=== PATIENT | male | born 1965 | race Caucasian/White ===

== ENCOUNTER 2018-05-25 08:50 | Outpatient (CLI) | payer BC, SELFPAY ==
[2018-05-25 12:58] LABS: TSH 0.84 uIU/mL (0.358-3.74)
== END 2018-05-25 09:10 ==
PROVIDERS: PCP Family Medicine; Visit Provider Preventive Medicine Undersea and Hyperbaric Medicine
DX: C01 Malignant neoplasm of base of tongue (principal)
CPT/HCPCS: 36415; 84443

== ENCOUNTER 2019-04-02 03:51 | Outpatient (CLI) | payer BC, SELFPAY ==
[2019-04-02 10:51] LABS: Abs Immature Grans 0.01 k/cumm (0.0-0.09); Absolute Basophil Count 0.01 k/cumm (0.0-0.2); Absolute Eosinophil Count 0.03 k/cumm (0.0-0.7); Absolute Lymphocyte Count 0.76 k/cumm (1.2-3.4); Absolute Monocyte Count 0.31 k/cumm (0.11-0.7); Absolute Neutrophil Count 2.51 k/cumm (1.2-6.7); Basophils % 0.3; Eosinophils % 0.8; HGB 14.6 g/dL (13.5-17.5); Immature Grans % 0.3; Lymphocytes % 20.9; Mean Corp. HGB Concentration 33.2 g/dL (32.0-36.0); Mean Corpuscular Hemoglobin 31.5 pg (27.0-33.0); Mean Platelet Volume 10.4 fL (8.0-11.0); Monocytes % 8.5; Neutrophils % 69.2; Platelet Count 241 x1000/uL (130-400); RBC 4.63 m/cumm (4.50-6.00); RBC Distribution Width 12.3 % (11.8-14.1); White Blood Cell Count 3.63 k/cumm (4.4-10.8)
[2019-04-02 11:26] LABS: ALT 37 U/L (16-63); AST 24 U/L (15-37); Alkaline Phosphatase 69 U/L (46-116); Anion Gap 9.9 mmol/L (3-11); BUN 14 mg/dL (7-18); Bilirubin, Total 0.4 mg/dL (0.2-1.0); CO2 26.1 mmol/L (21.0-32.0); CREATININE 0.77 mg/dL (0.70-1.30); Calcium 9.2 mg/dL (8.5-10.1); Calculated LDL 114 mg/dL; Chloride 103 mmol/L (98-107); Cholesterol 173 mg/dL (50-200); Glucose 86 mg/dL (70-100); HDL Cholesterol 41 mg/dL (40-60); Potassium 4.6 mmol/L (3.5-5.1); Sodium 139 mmol/L (136-145); TSH (W/Ref FT4) 2.43 uIU/mL (0.36-3.74); Total Protein 7.5 g/dL (6.4-8.2); Triglyceride 92 mg/dL (30-150)
[2019-04-02 11:27] LABS: Hemoglobin A1C 5.7 % (4.5-6.2)
[2019-04-05 11:47] LABS: PSA, Screening 2.1 ng/ml (0-3.5)
== END 2019-04-02 04:11 ==
PROVIDERS: PCP Family Medicine; Visit Provider Family Medicine
DX: Z00.00 Encounter for general adult medical examination without abnormal findings (principal); Z83.3 Family history of diabetes mellitus; Z92.3 Personal history of irradiation; Z83.438 Family history of other disorder of lipoprotein metabolism and other lipidemia; Z80.42 Family history of malignant neoplasm of prostate; Z12.5 Encounter for screening for malignant neoplasm of prostate
CPT/HCPCS: 36415; 80053; 80061; 84153; 83036; 84443; 85025

== ENCOUNTER 2019-06-16 06:22 | Day surgery (SDC) | payer BC, SELFPAY ==
[2019-06-16] VITALS (8 sets, daily range): BP systolic 131–159; BP diastolic 69–105; PULSE 56–77; RESP 14–20; TEMP 36.1–36.5; O2SAT 97–99
--- NOTE | 2019-06-16 06:10 | W.PM.HP.N ---
Date of service: 06/16/19 Time of Service: 06:29 Assessment and Plan Assessment and plan (1) Left inguinal hernia: Status: Acute Assessment and plan: A\\ left inguinal hernia P\\ Left Inguinal hernia repair with mesh Discussed TAP block Discussed pain management with Tylenol and ibuprofen afterwards Discussed lifting limitations for 4 weeks after surgery Risks, benefits and complications have been reviewed. Complications include but are not limited to bleeding, infection, injury to vas, vessels and nerves, injury to bowel and adverse reaction to medications. Questions were entertained and answered to their satisfaction and they wished to proceed. History of Present Illness Narrative: Mr. Holliday is a pleasant 53 year old male with a history of primary Tongue cancer s/p excision, Neck lymphadenectomy and radiation who is here today to discuss repair of his left inguinal hernia. He has had the hernia for about 1.5 years and he is an active ede. He has recovered from his tongue cancer and gained some weight and is ready to discuss repair. He has a previous history of Right inguinal hernia repair with mesh in 2010. he denies any chest pain or Cardiac history. There have been no changes in his health since he was seen in the office in March Review of Systems Constitutional Constitutional: Denies fever(s) and Denies weight loss Eyes Eyes: Denies change in vision ENT Ears, Nose, Mouth, and Throat: Denies dysphagia Cardiovascular Cardiovascular: Denies chest pain, Denies irregular heart rhythm, Denies palpitations, Denies dyspnea and Denies dyspnea on exertion Respiratory Respiratory: Denies chest congestion, Denies cough, Denies dyspnea and Denies dyspnea on exertion Gastrointestinal Gastrointestinal: Reports system reviewed and no additional complaints, except as docu and Denies dysphagia Genitourinary Genitourinary: Denies hematuria and Denies dysuria Endocrine Endocrine: Denies palpitations [facility] Medical History Decreased sensation (Acute) 06/11/19: To parts of neck s/p radiation per pt. -BR History of cancer (Acute) Hx of cancer to throat and lymph nodes. History of radiation to head and neck region (Acute) Left inguinal hernia (Acute) Swallowing difficulty (Acute) 06/11/19: Per pt. -BR Surgical History PNEUMOTHORAX (~08/1981) Repair of inguinal hernia (~05/2012) Family History Mother Diabetes Essential hypertension Heart disease Hyperlipidemia Father , 61 Heart disease Myocardial infarction Brother Essential hypertension Hyperlipidemia Paternal Grandfather Stroke Paternal Grandmother No problems noted. Maternal Grandfather Heart disease Son No problems noted. Daughter No problems noted. Daughter No problems noted. Social History Smoking/Tobacco Use Status: Former Tobacco Use Alcohol Intake: current Alcohol Intake frequency: a few times a week Alcohol type: beer, wine and hard liquor Drug use: Never Substance use type: does not use Caregiver/Support person: No Household members: spouse Housing: house Communication Needs: None Pets and animals: Yes Pets and animals: cat(s) and dog(s) Sexually active: Yes Do you think of yourself as: straight/heterosexual Current gender identity: male What is your relationship status?: How often do you talk on the phone with friends or family?: three or more times per week How often do you get together with friends or relatives?: once per week How often do you attend judaism or hindu services?: 1-3 times per year Do you belong to any clubs or organized social groups?: yes Panel score (0-1 are the most socially isolated patients): 3 What type of physical activity do you participate in: decline to answer Duration: decline to answer Frequency: decline to answer Ashley/Lutheran: Pentecostalism Special ashley needs: No Seatbelt use: always Helmet use: Yes Helmet use: always Drive intox or ride w/intox cdl company driver: No Do you feel safe at home: Yes Do you feel safe in your relationship?: Yes Meds Home Medications and Allergies Home Medications Medication Instructions Recorded Confirmed Type ciclopirox 100 gm TOPICAL BID #1 gel 05/23/17 04/09/19 Rx Allergies Allergy/AdvReac Type Severity Reaction Status Date / Time No Known Allergies Allergy Unverified 06/11/19 12:47 Exam Const General: cooperative, comfortable and no acute distress Orientation: alert and oriented x3 HENMT Head: normocephalic and atraumatic Resp Effort & Inspection: normal respiratory effort Auscultation: clear to auscultation bilaterally Cardio Rate: regular rate Rhythm: regular rhythm Heart Sounds: no gallops, no murmurs and no rubs
--- NOTE | 2019-06-16 06:14 | ROE_ITS ---
Date of service: 06/16/19 Time of Service: 07:58 Operative Note Operative Note DATE OF PROCEDURE: 06/16/19 PRE-OP DIAGNOSIS: Left inguinal hernia POST-OP DIAGNOSIS: same PROCEDURE: Left inguinal hernia repair with mesh SURGEON: Josefina Lo INSIDE CONTRACTOR SALES: Mari Trejo ANESTHESIA: MAC and regional COMPLICATIONS: None Patient was transported to: PACU Patient's condition: stable Implants: Bard Mesh Perfix Plug REF [id number] LOT [id number] EXP 2023-09-24 Indications: Mr. Holliday is a pleasant 54 year old male seen in the office for a left inguinal hernia. Risks, benefits and complications have been reviewed. Complications include but are not limited to bleeding, infection, injury to vas, vessels and nerves, injury to bowel and adverse reaction to medications. Questions were entertained and answered to their satisfaction and they wished to proceed. Findings: Large direct and small indirect hernia defects Procedure Description: After informed consent was obtained and the left inguinal area was clipped and marked, the patient was taken to the operating room and placed in a supine position. Monitors and SCDs were applied and a timeout was done. The patient's name, date of , procedure type, procedure site, allergies to medications, preoperative antibiotic, and DVT prophylaxis were all reviewed. Fire risk was assessed. Next anesthesia did a tap block on the left side under ultrasound guidance. Please see their separate dictation. Once anesthesia was done the abdomen was prepped and draped in a sterile surgical fashion. 1% lidocaine was injected into the dermis in the left lower quadrant. An incision was made with a 10 blade in the left lower quadrant. Dissection was done with cautery through the subcutaneous tissues and Lam's fascia down to the external oblique fascia. The external oblique fashia was noted to be thin. The external ring was identified and the external oblique fascia was opened sharply through the external ring. The cut fascia was grasped with hemostats and the cord structures were identified and a [place] drain was placed around them. The cremasteric muscle was dissected away from the cord structures using both cautery and blunt dissection. A small hernia sac was identified and removed from the cord structures using blunt dissection. The hernia sac was pushed back into the peritoneum. A large direct hernia defect was laos noted. The ilioinguinal nerve was identified and cut. A Large Perfix plug was placed into the indirect defect and secured with 2-0 proline. The flat mesh was then attached to the conjoined tendon using a 2-0 Prolene double armed suture. The mesh was secured laterally and medially with a 2-0 Prolene, with a running suture. The tails of the mesh were wrapped around the cord structures effectively cinching down the internal ring. Once the mesh was secured the tissues were irrigated with some normal saline. No bleeding was identified. The external oblique fascia was re-approximated using 2-0 Vicryl running suture. The Lam's fascia was re-approximated using interrupted 3-0 Vicryl. The dermis was re-approximated with a running 4-0 Vicryl. The skin was cleaned and dried and skin affix was applied. The patient was woken up and taken back to recovery in stable condition. There were no immediate complications. Sponge, instrument and needle counts were correct at the end of the case x2.
--- NOTE | 2019-06-16 06:20 | W.PM.DSUDISC ---
Discharge Plan Disposition Patient Disposition: HOME Condition: Good Discharge Details Reason For Visit: Left inguinal hernia Attending Provider: Josefina Lo Primary Care Provider: Adolfo Villatoro Home Meds and New Rx's Prescriptions: New acetaminophen [Tylenol] 325 mg Tablet 650 mg PO Q6H PRN PRNQty: 30 RF: 0 Continued ciclopirox 100 GM gel 100 gm Topical BID Qty: 1 RF: 0 ibuprofen [Advil Liqui-Gel] 200 mg Capsule 400 mg PO Q6H PRNRF: 0 Discharge Instructions Instructions: Inguinal Hernia Repair (GEN) Additional Instructions: Activity at Home after surgery: 1. Make sure you walk outside at least 4 times per day 2. You should be able to climb a flight of stairs 3. No driving while in pain or taking pain medications 4. No strenuous activity or heavy lifting for 4 weeks (open surgery) Diet, Nutrition, & wound healin. Avoid alcohol until after you are recovered from your surgery 2. Make sure to eat plenty of lean protein (meat, fish, eggs, cottage cheese, beans) 3. Eat a variety of fruits and vegetables. Eat plenty of high fiber foods to avoid constipation. 4. Drink plenty of liquids to stay hydrated and avoid constipation Pain Medications: 1. Alternate Tylenol 650 mg and Ibuprofen 400 to 600 mg every 3 hours 2. If a narcotic has been prescribed take as directed only for breakthrough pain For Constipation: 1. Take Milk of Magnesia or MiraLax as needed for constipation Other: 1. You may shower daily. Do not scrub the incisions 2. Do not soak the incisions for 1 week 3. You may alternate ice and heat as needed for pain and swelling Wound Care: 1. Keep the incisions clean and dry Please call our office if you develop: 1. Fevers >101.5 2. Nausea or Vomiting 3. Worsening pain 4. Redness and thick discharge from the wounds If after hours please call the Hospital at and ask to speak to the on-call surgeon Referrals: Josefina Lo MD [ [facility] STAFF PHYSICIAN] - 07/02/19 8:00 am Activity:: No lifting, pulling or pushing >20 lb x 4 weeks Diet:: As Tolerated Discharge Orders Discharge Orders: Discharge Order (Routine); Ordered 06/16/19 Ordered By: Josefina Lo DS: Diagnosis Discharge Diagnosis (1) Left inguinal hernia: Status: Acute
[2019-06-16] MEDS: Lactated Ringers 1,000 ML 80 ML IV (07:00)
[2019-06-16] MEDS: ceFAZolin 2 GM/50 ML BAG IVPB (07:35)
[2019-06-16] MEDS: Bupivacaine 0.5% Pres-Free 30 ML VIAL (07:41)
[2019-06-16] MEDS: Bupivacaine LIPOSOME/PF 133 MG/10 ML VIAL IJ (07:42)
[2019-06-16] MEDS: Lidocaine 1% Pres-Free 5 ML VIAL (07:59)
[2019-06-16] MEDS: fentaNYL 100 MCG/2 ML VIAL IVP ×2 (08:57→09:12)
[2019-06-16] MEDS: Ketorolac 30 MG/ML VIAL IVP (09:45)
[2019-06-16] MEDS: Acetaminophen 325 MG TAB 650 MG PO (10:50)
== END 2019-06-16 12:29 | disposition home or self-care (01) ==
LOC: SUR 06:22
PROVIDERS: PCP Family Medicine; Visit Provider Surgery
PROC: (CPT 49505; principal; 2019-06-16 07:30)
DX: K40.90 Unilateral inguinal hernia, without obstruction or gangrene, not specified as recurrent (principal); G89.18 Other acute postprocedural pain
CPT/HCPCS: 49505; 76942; NC; C1781; J0690; J1100; J1885; J2250; J2405; J3010

== ENCOUNTER 2019-12-14 03:15 | Outpatient (CLI) | payer BC, SELFPAY ==
[2019-12-14 08:26] LABS: TSH 3.14 uIU/mL (0.36-3.74)
== END 2019-12-14 03:35 ==
PROVIDERS: PCP Family Medicine; Visit Provider Preventive Medicine Undersea and Hyperbaric Medicine
DX: C10.9 Malignant neoplasm of oropharynx, unspecified (principal)
CPT/HCPCS: 36415; 84443

== ENCOUNTER 2020-04-07 01:58 | Outpatient (CLI) | payer BC, SELFPAY ==
[2020-04-07 07:59] LABS: Abs Immature Grans 0.01 10^3/uL (0.0-0.06); Absolute Basophil Count 0.03 10^3/uL (0.0-0.2); Absolute Lymphocyte Count 1.16 10^3/uL (1.2-3.4); Absolute Monocyte Count 0.33 10^3/uL (0.1-0.8); Absolute Neutrophil Count 2.61 10^3/uL (1.2-6.7); Basophils % 0.7; Eosinophils % 2.4; HCT 44.8 % (40.0-50.0); HGB 14.9 g/dL (13.5-17.5); Immature Grans % 0.2; Lymphocytes % 27.4; MCH 31.6 pg (27.0-33.0); MCHC 33.3 % (32.0-36.0); MCV 95.1 fL (80-95); MPV 9.6 fL (8.0-11.0); Monocytes % 7.8; Neutrophils % 61.5; Nucleated RBC 0 %; Platelet Count 218 10^3/uL (130-400); RBC 4.71 10^6/uL (4.36-5.78); RDW 11.9 % (11.8-14.1); RDW-SD 41.7 fL; WBC 4.24 10^3/uL (4.4-10.8)
[2020-04-07 09:16] LABS: ALT 55 U/L (16-63); AST 27 U/L (15-37); Albumin 4.1 g/dL (3.4-5.0); Alkaline Phosphatase 69 U/L (46-116); Anion Gap 4.7 mmol/L (3-11); BUN 13 mg/dL (7-18); Bilirubin, Total 0.4 mg/dL (0.2-1.0); CO2 30.3 mmol/L (21.0-32.0); CREATININE 0.87 mg/dL (0.70-1.30); Calcium 9.1 mg/dL (8.5-10.1); Calculated LDL 135 mg/dL (<100); Chloride 101 mmol/L (98-107); Cholesterol 201 mg/dL (<200); Glucose 90 mg/dL (74-106); HDL Cholesterol 35 mg/dL (40-60); Potassium 4.6 mmol/L (3.5-5.1); Sodium 136 mmol/L (136-145); TSH (W/Ref FT4) 2.77 uIU/mL (0.36-3.74); Total Protein 7.3 g/dL (6.4-8.2); Triglyceride 158 mg/dL (<150)
== END 2020-04-07 02:18 ==
PROVIDERS: PCP Family Medicine; Visit Provider Family Medicine
DX: Z83.3 Family history of diabetes mellitus (principal); Z82.49 Family history of ischemic heart disease and other diseases of the circulatory system; Z00.00 Encounter for general adult medical examination without abnormal findings
CPT/HCPCS: 36415; 80053; 80061; 84443; 85025

== ENCOUNTER 2020-05-17 10:30 | Outpatient (REF) | payer BC, SELFPAY | END 2020-05-17 10:50 | LOC: LBN 10:30 | PROVIDERS: PCP Family Medicine; Visit Provider Nurse Practitioner Family | DX: R35.0 Frequency of micturition (principal); Z12.5 Encounter for screening for malignant neoplasm of prostate | CPT/HCPCS: 84153 ==

== ENCOUNTER 2020-11-08 03:03 | Outpatient (CLI) | payer BC, SELFPAY ==
[2020-11-08 12:52] LABS: TSH 2.57 uIU/mL (0.36-3.74)
== END 2020-11-08 03:04 | disposition home or self-care (01) ==
LOC: LOS 03:04
PROVIDERS: PCP Family Medicine; Visit Provider Preventive Medicine Undersea and Hyperbaric Medicine
DX: C10.9 Malignant neoplasm of oropharynx, unspecified (principal)
CPT/HCPCS: 36415; 84443

== ENCOUNTER 2021-10-02 08:04 | Outpatient (CLI) | payer BC, SELFPAY ==
--- NOTE | 2021-10-02 08:00 | RT.EKG_ITS ---
APPROVED REPORT Exam: Resting ECG Reason for Exam: Chest pain Patient Location: O HR:69 bpm ECG Measurements Heart Rate [address] 174 P 61 QRSd 89 QRS 21 QT 406 T 38 QTc 434 Conclusion Sinus rhythm...normal P axis, V-rate 60- 99
== END 2021-10-02 08:05 | disposition home or self-care (01) ==
LOC: DI.CM 08:04
PROVIDERS: PCP Family Medicine; Visit Provider Family Medicine
DX: R07.9 Chest pain, unspecified (principal)
CPT/HCPCS: 93010

== ENCOUNTER 2021-10-09 00:11 | Outpatient (CLI) | payer BC, SELFPAY ==
--- NOTE | 2021-10-09 08:00 | ETT_ITS ---
APPROVED REPORT Exam: Exercise Treadmill Patient Location: Out-Patient Room/Bed: Stress Nurse: Bela Boyd RN Ordering Provider:LILY BARROS, Contact Number: [phone] BMI: 24.32 Baseline Rhythm: Sinus Rhythm Comment: diffuse minimal ST elevations Indications: Chest pain Medical History Medical History: Hyperlipidemia, gerd Cardiac Medications: Aspirin Allergies: NKA Cardiac Risk Factors: Hyperlipidemia, family hx Previous Cardiac Procedures: None Pretest Chest Pain Characteristics: None Exercise History: Sedentary Physical Disabilities: None Lung Sounds: Clear to auscultation Heart Sounds: Regular Stress Test Details Test: Exercise stress testing was performed using a Maverick protocol. Rest Stress HR Resting HR Supine: 75 bpm Max Heart Rate (APMHR): 163 bpm Resting HR Standin bpm Target HR (85% APMHR): 138 bpm Max HR Achieved: 164 bpm % of APMHR: 100 Recovery HR: 94 bpm HR response to stress: Normal HR response to stress BP Resting BP Supine: 152/84 mmHg Resting BP Standin/74 mmHg Max BP: 210/82 mmHg Recovery BP: 150/80 mmHg BP response to stress: Abnormal hypertensive response to stress during recovery period. ECG Resting ECG: Sinus Rhythm Ectopy: None Comment: Diffuse minimal ST elevations Stress ECG: Sinus Tachycardia ST Change: Upsloping ST depression Lead(s): V3 Stage: [address] Deviation: 2 mm Arrhythmia: Occasional PACs, PVCs, couplet Recovery ECG: Sinus Rhythm Recovery ST Change: No significant ST segment changes noted Recovery Arrhythmia: Rare PAC Clinical Reason for Termination: Fatigue Stress Symptoms: Leg Fatigue, Dyspnea Exercise duration: 12 min31 sec Highest Stage Reached: Stage 5: 5.0 mph at 18% grade. Exercise capacity: 13.82 METs Pineda Treadmill Score: 10.9 Rate Pressure Product: [id number] Stress ECG Conclusion 1. Resting electrocardiogram showed voltage for left ventricular hypertrophy 2. Patient exercised on the Maverick protocol and completed a workload of 13.82 METS, stopping due to fa tigue 3. Normal heart rate response to exercise. The patient achieved 100% of predicted heart rate for age . Mildly hypertensive blood pressure response to exercise 4. The electrocardiographic portion of the test was negative for myocardial ischemia 5. There were no significant dysrhythmias P[place]a Treadmill Score is 10.9 which is Low risk. Stress Test Summary STAGE Time (mins) Speed (mph) Grade (%) HR BP SYMPTOMS METS Supine 75 152/84 Standing 75 132/74 SpO2 96% 1 3 1.7 10 107 150/78 SpO2 96% 4.6 2 6 2.5 12 112 160/72 SpO2 95% 7 3 9 3.4 14 129 160/78 Mild SOB, SpO2 94% 10.2 4 12 4.2 16 156 Mild SOB, SpO2 95% 12.9 1 min recovery 133 178/70 Mild SOB, SpO2 95% 3 min recovery 100 210/82 SOB resolved, SpO2 96% 6 min recovery 94 150/80 SpO2 96%
== END 2021-10-09 00:31 ==
LOC: DI 00:11
PROVIDERS: PCP Family Medicine; Visit Provider Family Medicine
DX: R07.89 Other chest pain (principal)
CPT/HCPCS: 93017

== ENCOUNTER 2022-05-01 02:46 | Outpatient (CLI) | payer BC, SELFPAY ==
[2022-05-01 08:31] LABS: Calculated LDL 123 mg/dL (<100); Cholesterol 181 mg/dL (<200); HDL Cholesterol 34 mg/dL (40-60); Triglyceride 122 mg/dL (<150)
[2022-05-01 17:48] LABS: CRP, High Sensitivity 5.85 mg/L (See Note)
== END 2022-05-01 02:47 | disposition home or self-care (01) ==
LOC: LBO 02:46
PROVIDERS: PCP Family Medicine; Visit Provider Family Medicine
DX: Z00.00 Encounter for general adult medical examination without abnormal findings (principal); R07.89 Other chest pain; R03.0 Elevated blood-pressure reading, without diagnosis of hypertension
CPT/HCPCS: 36415; 80061; 86141

== ENCOUNTER 2023-04-15 03:30 | Outpatient (CLI) | payer BC, SELFPAY ==
[2023-04-15 07:46] LABS: Anion Gap 8.8 mmol/L (3-11); BUN 14 mg/dL (7-18); CO2 27.2 mmol/L (21.0-32.0); Calcium 9.5 mg/dL (8.5-10.1); Calculated LDL 80 mg/dL (<100); Chloride 100 mmol/L (98-107); Cholesterol 143 mg/dL (<200); Estimated GFR 87.24 (mL/min/1.73m2); Glucose 97 mg/dL (74-106); HDL Cholesterol 44 mg/dL (40-60); Potassium 4.5 mmol/L (3.5-5.1); Sodium 136 mmol/L (136-145); Triglyceride 99 mg/dL (<150)
== END 2023-04-15 03:31 | disposition home or self-care (01) ==
LOC: LBO 03:30
PROVIDERS: PCP Family Medicine; Visit Provider Family Medicine
DX: I10 Essential (primary) hypertension (principal); R03.0 Elevated blood-pressure reading, without diagnosis of hypertension; Z13.6 Encounter for screening for cardiovascular disorders
CPT/HCPCS: 36415; 80048; 80061

== ENCOUNTER 2023-06-16 04:38 | Outpatient (CLI) | payer BC, SELFPAY | END 2023-06-16 04:39 | disposition home or self-care (01) | LOC: LBO 04:38 | PROVIDERS: PCP Family Medicine; Visit Provider Family Medicine | DX: Z12.5 Encounter for screening for malignant neoplasm of prostate (principal); Z92.3 Personal history of irradiation | CPT/HCPCS: 36415; 84153 ==

== ENCOUNTER 2024-04-28 02:10 | Outpatient (CLI) | payer BC, SELFPAY ==
[2024-04-28 10:35] LABS: Anion Gap 6.7 mmol/L (3-11); BUN 12 mg/dL (7-18); CO2 29.3 mmol/L (21.0-32.0); CREATININE 0.9 mg/dL (0.70-1.30); Calcium 9.8 mg/dL (8.5-10.1); Calculated LDL 84 mg/dL (<100); Chloride 101 mmol/L (98-107); Cholesterol 161 mg/dL (<200); Estimated GFR 98.38 (mL/min/1.73m2); Glucose 94 mg/dL (74-106); HDL Cholesterol 49 mg/dL (40-60); Potassium 4.7 mmol/L (3.5-5.1); Sodium 137 mmol/L (136-145); Triglyceride 140 mg/dL (<150)
== END 2024-04-28 02:11 | disposition home or self-care (01) ==
LOC: LBO 02:10
PROVIDERS: PCP Family Medicine; Visit Provider Family Medicine
DX: I10 Essential (primary) hypertension (principal); Z13.6 Encounter for screening for cardiovascular disorders
CPT/HCPCS: 36415; 80048; 80061

== ENCOUNTER 2025-04-28 04:05 | Outpatient (CLI) | payer OTHER, SELFPAY ==
[2025-04-28 08:06] LABS: Anion Gap 11.0 mmol/L (3-11); BUN 14 mg/dL (7-18); CO2 28.0 mmol/L (21.0-32.0); Calcium 9.0 mg/dL (8.5-10.1); Calculated LDL 68 mg/dL (<100); Chloride 101 mmol/L (98-107); Cholesterol 126 mg/dL (<200); Estimated GFR 97.78 (mL/min/1.73m2); Glucose 93 mg/dL (74-106); HDL Cholesterol 38 mg/dL (>or=40); Potassium 4.4 mmol/L (3.5-5.1); Sodium 140 mmol/L (136-145); Triglyceride 103 mg/dL (<150)
[2025-04-28 17:45] LABS: PSA, Screening 1.5 ng/mL (<=4.5)
== END 2025-04-28 04:06 | disposition home or self-care (01) ==
PROVIDERS: PCP Family Medicine; Visit Provider Family Medicine
DX: Z13.6 Encounter for screening for cardiovascular disorders (principal); Z13.1 Encounter for screening for diabetes mellitus; Z12.5 Encounter for screening for malignant neoplasm of prostate
CPT/HCPCS: 36415; 80048; 80061; 84153